=== PATIENT | female | born 1945 | race Caucasian/White ===

== ENCOUNTER 2019-09-12 09:49 | Day surgery (SDC) | payer MEDICARE ==
[~2019-09-12] VITALS: Ht 172.7 cm; Wt 109.1 kg
[2019-09-12] MEDS ORDERED: SODIUM CHLORIDE 0.9% 1,000 ML IV SCH ×2 (10:20→15:32)
[2019-09-12 10:23] VITALS: BP 159/92
[2019-09-12] MEDS ORDERED: DIPHENHYDRAMINE 50 MG/ML, 1ML IVPush ONE (10:30)
[2019-09-12] MEDS ORDERED: methylPREDNISolone SOD SUCC 125 MG/2 ML IVPush ONE (10:30)
[2019-09-12] MEDS ORDERED: CLOPIDOGREL 75 MG TABLET PO ONE (10:30)
[2019-09-12] MEDS ORDERED: ASPIRIN 325 MG TABLET EC PO ONE (10:30)
[2019-09-12] MEDS ORDERED: ASPIRIN 325 MG TABLET EC ONE (10:44)
[2019-09-12] MEDS ORDERED: CLOPIDOGREL 75 MG TABLET ONE (10:45)
[2019-09-12 10:58] LABS: ALANINE AMINOTRANSFERASE 14 U/L (12-78); ALBUMIN 3.6 g/dL (3.4-5.0); ANION GAP 5 mmol/L (5-15); CALCIUM 9.3 mg/dL (8.5-10.1); CHLORIDE 107 mmol/L (98-107); CREATININE 0.69 mg/dL (0.55-1.02)
[2019-09-12 10:59] LABS: BASOPHILS # (AUTO) 0.03 x10^3/uL (0-0.1); BASOPHILS % (AUTO) 1 % (0-1); EOSINOPHILS # (AUTO) 0.08 x10^3/uL (0-0.4); EOSINOPHILS % (AUTO) 2 % (1-7); LYMPHOCYTES # (AUTO) 1.85 x10^3/uL (1-3.4); LYMPHOCYTES % (AUTO) 33 % (22-44); MD NO; MEAN CORPUSCULAR HEMOGLOBIN 32.8 pg (27.0-34.8); MEAN CORPUSCULAR HGB CONC 33.9 g/dL (32.4-35.8); MEAN CORPUSCULAR VOLUME 96.7 fL (80-100); MEAN PLATELET VOLUME 7.3 fL (7.4-10.4); MONOCYTES # (AUTO) 0.32 x10^3/uL (0.2-0.8); MONOCYTES % (AUTO) 6 % (2-9); NEUTROPHILS # (AUTO) 3.32 x10^3/uL (1.8-6.8); NEUTROPHILS % (AUTO) 59 % (42-75); PLATELET COUNT 357 x10^3/uL (130-400); RED BLOOD COUNT 3.69 x10^6/uL (3.82-5.3); RED CELL DISTRIBUTION WIDTH 13.8 % (9.6-15.2)
[2019-09-12 11:00] LABS: ALKALINE PHOSPHATASE 81 U/L (45-117); BILIRUBIN,TOTAL 0.2 mg/dL (0.2-1.0); CHOL/HDL RATIO 1.9; CHOLESTEROL, TOTAL 144 mg/dL (140-239); HDL CHOL % 53 % (28-40); HDL CHOLESTEROL (DIRECT) 77 mg/dL (40-60); LDL CHOLESTEROL,CALCULATED 52 mg/dL (54-169); LDL/HDL RATIO 0.7 (0.5-3.0); TOTAL PROTEIN 7.1 g/dL (6.4-8.2); TRIGLYCERIDES 74 mg/dL (50-200); VLDL CHOLESTEROL 15 mg/dL (0-25)
[2019-09-12] MEDS ORDERED: DIPHENHYDRAMINE 50 MG/ML, 1ML ONE (14:32)
[2019-09-12] MEDS ORDERED: methylPREDNISolone SOD SUCC 125 MG/2 ML ONE (14:33)
[2019-09-12] MEDS ORDERED: FENTANYL PF 100 MCG/2ML ONE (14:33)
[2019-09-12] MEDS ORDERED: MIDAZOLAM 1 MG/ML, 5ML ONE (14:33)
[2019-09-12] MEDS ORDERED: BIVALIRUDIN 250 MG ONE (14:33)
[2019-09-12] MEDS ORDERED: HEPARIN 1,000 UNITS/ML, 10ML ONE (14:33)
[2019-09-12] MEDS ORDERED: TICAGRELOR 90 MG TABLET ONE (14:33)
[2019-09-12] MEDS ORDERED: LIDOCAINE-MPF 1%, 5ML ONE (14:33)
[2019-09-12] MEDS ORDERED: VERAPAMIL 2.5 MG/ML, 2ML ONE (14:33)
[2019-09-12] MEDS ORDERED: FAMOTIDINE 20 MG/2 ML ONE (14:36)
[2019-09-12] MEDS ORDERED: ATOR40TA PO (15:35)
[2019-09-12] MEDS ORDERED: ASPI-496 PO (15:35)
[2019-09-12] MEDS ORDERED: VITA1CAP PO (15:35)
[2019-09-12] MEDS ORDERED: VALS160T3 PO (15:35)
[2019-09-12] MEDS ORDERED: LEVO125T5 PO (15:35)
== END 2019-09-12 16:30 | disposition home or self-care (01) ==
LOC: CACL 09:49
PROVIDERS: ATTEND Internal Medicine Cardiovascular Disease
DX: I35.0 Nonrheumatic aortic (valve) stenosis (principal); I10 Essential (primary) hypertension; E78.5 Hyperlipidemia, unspecified; Z91.041 Radiographic dye allergy status; Z88.1 Allergy status to other antibiotic agents; Z82.3 Family history of stroke; Z88.2 Allergy status to sulfonamides; Z79.82 Long term (current) use of aspirin; Z79.899 Other long term (current) drug therapy; Z98.890 Other specified postprocedural states
CPT/HCPCS: 36415; 80053; 80061; 85025; 93454; 99156; C1769; C1894; J1200; J1644; J2250; J2930; J3010; Q9967; J0583

== ENCOUNTER → 2019-09-18 | Outpatient (CLI) | payer MEDICARE ==
[~2019-09-18] MED LIST: ASPI-496 PO; ATOR40TA PO; LEVO125T5 PO; VALS160T3 PO; VITA1CAP PO
== END | disposition home or self-care (01) ==
LOC: CVU 08:29
PROVIDERS: ATTEND Internal Medicine Cardiovascular Disease
DX: Z01.810 Encounter for preprocedural cardiovascular examination (principal); I08.8 Other rheumatic multiple valve diseases; M41.85 Other forms of scoliosis, thoracolumbar region; M47.815 Spondylosis without myelopathy or radiculopathy, thoracolumbar region; R06.02 Shortness of breath; Z90.49 Acquired absence of other specified parts of digestive tract; Z96.643 Presence of artificial hip joint, bilateral
CPT/HCPCS: 71250; 74176; 93306; 93978; 94010; 94726; 94729

== ENCOUNTER → 2019-09-19 | Outpatient (CLI) | payer MEDICARE | END | disposition home or self-care (01) | LOC: STAR 11:11 | PROVIDERS: ATTEND Anesthesiology | DX: Z01.818 Encounter for other preprocedural examination (principal); Z11.59 Encounter for screening for other viral diseases | CPT/HCPCS: 36415; 87635 ==

== ENCOUNTER → 2019-10-28 | Outpatient (CLI) | payer MEDICARE ==
[~2019-10-28] MED LIST changes: +ACET325T26 PO; +CLOP75TA PO
== END | disposition home or self-care (01) ==
LOC: CVU 09:54
PROVIDERS: ATTEND Internal Medicine Cardiovascular Disease
DX: I08.8 Other rheumatic multiple valve diseases (principal); I11.9 Hypertensive heart disease without heart failure; I65.29 Occlusion and stenosis of unspecified carotid artery; R06.02 Shortness of breath
CPT/HCPCS: 93306

== ENCOUNTER → 2020-09-21 | Outpatient (CLI) | payer MEDICARE | END | disposition home or self-care (01) | LOC: CVU 10:08 | PROVIDERS: ATTEND Internal Medicine Cardiovascular Disease | DX: Z01.810 Encounter for preprocedural cardiovascular examination (principal); I65.29 Occlusion and stenosis of unspecified carotid artery; I11.9 Hypertensive heart disease without heart failure; I08.8 Other rheumatic multiple valve diseases; Z95.2 Presence of prosthetic heart valve | CPT/HCPCS: 93306; 93356 ==